=== PATIENT | female | born 1975 | race Caucasian/White ===

== ENCOUNTER 2018-09-25 18:27 | Observation (INO) | payer MEDICAID, OTHER ==
[2018-09-25 21:51] LABS: ADD MAN DIFF? NO
[2018-09-25 21:53] LABS: BASOPHILS % 0.3 % (0.0-2.0); EOSINOPHILS # 0.1 10^3/ul (0.0-0.5); EOSINOPHILS % 0.6 % (0.0-7.0); HEMATOCRIT 44.1 % (37.0-47.0); HEMOGLOBIN 15.3 g/dl (12.0-16.0); LYMPHOCYTES # 3.2 10^3/ul (0.8-2.9); LYMPHOCYTES % 29.3 % (15.0-51.0); MEAN CORPUSCULAR HEMOGLOBIN 30.9 pg (29.0-33.0); MEAN CORPUSCULAR HGB CONC 34.7 g/dl (32.0-37.0); MEAN CORPUSCULAR VOLUME 89.1 fl (82.0-101.0); MEAN PLATELET VOLUME 11.3 fl (7.4-10.4); MONOCYTE # 0.6 10^3/ul (0.3-0.9); MONOCYTES % 5.7 % (0.0-11.0); NEUTROPHIL # 6.9 10^3/ul (1.6-7.5); NEUTROPHILS % 63.7 % (39.0-77.0); PLATELET COUNT 336 10^3/UL (140-415); RED BLOOD COUNT 4.95 10^6/ul (4.20-5.40); RED CELL DISTRIBUTION WIDTH 10.9 % (11.5-14.5)
[2018-09-25 21:53] LABS: WHITE BLOOD COUNT 10.9 10^3/ul (4.8-10.8)
[2018-09-25 22:17] LABS: ALANINE AMINOTRANSFERASE 9 IU/L (13-69); ALBUMIN 4.5 g/dl (3.3-4.9); ALBUMIN/GLOBULIN RATIO 1.28; ALKALINE PHOSPHATASE 147 IU/L (42-121); ANION GAP 12 (5-13); ASPARTATE AMINO TRANSFERASE 18 IU/L (15-46); BILIRUBIN,INDIRECT 0.4 mg/dl (0-1.1); BILIRUBIN,TOTAL 0.4 mg/dl (0.2-1.3); BLOOD UREA NITROGEN 12 mg/dl (7-20); CALCIUM 9.6 mg/dl (8.4-10.2); CARBON DIOXIDE 27 mmol/L (21-31); CHLORIDE 102 mmol/L (97-110); CREATININE 0.34 mg/dl (0.44-1.00); Estimated GFR > 60 mL/min (>60); GLUCOSE 308 mg/dl (70-220); LIPASE 144 U/L (23-300); POTASSIUM 3.7 mmol/L (3.5-5.1); SODIUM 141 mmol/L (135-144)
[2018-09-25] MEDS: ENALAPRILAT 1.25 MG INJ IV ×2 (22:26→23:12)
[2018-09-25 22:27] LABS: TROPONIN-I < 0.012 ng/ml (0.000-0.120)
[2018-09-25] MEDS: ACYCLOVIR 800 MG TAB PO (22:41)
[2018-09-25] MEDS: ONDANSETRON 4 MG INJ IV (22:41)
[2018-09-25] MEDS: DEXAMETHASONE 10 MG/ML 1 ML INJ IV (22:41)
[2018-09-25] MEDS: SOD CHLORIDE 0.9% 500 ML IV (22:42)
[2018-09-25] MEDS: ASPIRIN 81 MG TAB PO (23:24)
[2018-09-25 23:42] LABS: ADD UMIC NO; UR ASCORBIC ACID NEGATIVE (NEGATIVE); UR BILIRUBIN (Dip) NEGATIVE (NEGATIVE); UR BLOOD (Dip) NEGATIVE (NEGATIVE); UR CLARITY CLEAR (CLEAR); UR COLOR COLORLESS (YELLOW); UR GLUCOSE (Dip) 3+ mg/dL (NEGATIVE); UR KETONES (Dip) TRACE mg/dL (NEGATIVE); UR LEUKOCYTE ESTERASE (Dip) NEGATIVE Leu/ul (NEGATIVE); UR NITRITE (Dip) NEGATIVE (NEGATIVE); UR SPECIFIC GRAVITY (Dip) 1.005 (1.003-1.030); UR TOTAL PROTEIN (Dip) NEGATIVE (NEGATIVE); UR UROBILINOGEN (Dip) NEGATIVE (NEGATIVE)
[2018-09-26] MEDS ORDERED: NACL 0.9% 3 ML SYG IV (02:30)
[2018-09-26] MEDS ORDERED: GLUCAGON 1 MG INJ IM (03:00)
[2018-09-26] MEDS ORDERED: GLUCOSE GEL 15 GRAM TUBE PO ×2 (03:00)
[2018-09-26] MEDS ORDERED: DEXTROSE 50% 50 ML SYRINGE IV ×2 (03:00)
[2018-09-26] MEDS ORDERED: GLUCOSE GEL 15 GRAM TUBE BUCCAL (03:00)
[2018-09-26 03:45] LABS: ADD MAN DIFF? NO
[2018-09-26 04:05] LABS: BASOPHILS % 0.3 % (0.0-2.0); HEMATOCRIT 42.2 % (37.0-47.0); HEMOGLOBIN 14.8 g/dl (12.0-16.0); LYMPHOCYTES # 1.1 10^3/ul (0.8-2.9); LYMPHOCYTES % 8.4 % (15.0-51.0); MEAN CORPUSCULAR HEMOGLOBIN 31.4 pg (29.0-33.0); MEAN CORPUSCULAR HGB CONC 35.1 g/dl (32.0-37.0); MEAN CORPUSCULAR VOLUME 89.4 fl (82.0-101.0); MEAN PLATELET VOLUME 11.7 fl (7.4-10.4); MONOCYTE # 0.1 10^3/ul (0.3-0.9); NEUTROPHIL # 11.6 10^3/ul (1.6-7.5); PLATELET COUNT 311 10^3/UL (140-415); RED BLOOD COUNT 4.72 10^6/ul (4.20-5.40)
[2018-09-26 04:09] LABS: HEMOGLOBIN A1C 10.1 % (0-5.9)
[2018-09-26 04:10] LABS: CREATINE KINASE 33 IU/L (23-200)
[2018-09-26 04:14] LABS: ALANINE AMINOTRANSFERASE 6 IU/L (13-69); ALBUMIN 4.2 g/dl (3.3-4.9); ALBUMIN/GLOBULIN RATIO 1.31; ALKALINE PHOSPHATASE 136 IU/L (42-121); ANION GAP 13 (5-13); ASPARTATE AMINO TRANSFERASE 16 IU/L (15-46); BILIRUBIN,INDIRECT 0.5 mg/dl (0-1.1); BILIRUBIN,TOTAL 0.5 mg/dl (0.2-1.3); BLOOD UREA NITROGEN 14 mg/dl (7-20); CALCIUM 9.6 mg/dl (8.4-10.2); CARBON DIOXIDE 24 mmol/L (21-31); CHLORIDE 103 mmol/L (97-110); CHOL/HDL RATIO 6.2 RATIO; CHOLESTEROL 243 mg/dl (100-200); CREATININE 0.38 mg/dl (0.44-1.00); Estimated GFR > 60 mL/min (>60); HDL CHOLESTEROL 39 mg/dl (34-88); LDL CHOLESTEROL,CALCULATED 189 mg/dl; POTASSIUM 4.2 mmol/L (3.5-5.1); SODIUM 140 mmol/L (135-144); TOTAL PROTEIN 7.4 g/dl (6.1-8.1); TRIGLYCERIDES 74 mg/dl (0-149)
[2018-09-26 04:22] LABS: CK INDEX 0.7; CK-MB < 0.22 ng/ml (0.0-2.4); TROPONIN-I < 0.012 ng/ml (0.000-0.120)
[2018-09-26 04:23] LABS: GLUCOSE 455 mg/dl (70-220)
[2018-09-26] MEDS: INSULIN ASPART [NOVOLOG] 3 ML PEN SC ×8 (04:49→21:00)
[2018-09-26 05:16] LABS: THYROID STIMULATING HORMONE 0.422 MIU/L (0.465-4.680)
[2018-09-26] MEDS: ASPIRIN 81 MG TAB PO (08:08)
[2018-09-26] MEDS: INSULIN GLARGINE [LANTus] (100 UNITS/ML) SYG SC (08:19)
[2018-09-26] MEDS: HEPARIN 5,000 UNIT/1 ML VIAL SC ×2 (08:19→21:01)
[2018-09-26 09:06] LABS: CREATINE KINASE 32 IU/L (23-200)
[2018-09-26 09:20] LABS: CK INDEX 0.8; CK-MB 0.26 ng/ml (0.0-2.4); TROPONIN-I < 0.012 ng/ml (0.000-0.120)
[2018-09-26] MEDS: SOD CHLORIDE 0.9% 100 ML (10:56)
[2018-09-26] MEDS: IOHEXOL 100 ML (10:56)
[2018-09-26] MEDS: ACETAMINOPHEN 325 MG TAB PO (15:50)
[2018-09-26] MEDS ORDERED: morphine 2 MG INJ IV (16:30)
[2018-09-26] MEDS ORDERED: HYDROmorphONE 0.5 MG/0.5 ML SYG IV (16:30)
[2018-09-26] MEDS: HYDROCODONE/APAP (10/325) TAB PO ×2 (16:32→23:38)
[2018-09-26] MEDS: ATORVASTATIN 20 MG TAB PO (20:10)
[2018-09-26] MEDS: ONDANSETRON 4 MG INJ IV (23:40)
[2018-09-27] MEDS: ACCU-CHEK XX (01:26)
[2018-09-27 06:39] LABS: ADD MAN DIFF? NO
[2018-09-27] MEDS: ACETAMINOPHEN 325 MG TAB PO (06:48)
[2018-09-27 06:51] LABS: BASOPHILS % 0.3 % (0.0-2.0); EOSINOPHILS % 0.3 % (0.0-7.0); HEMOGLOBIN 13.5 g/dl (12.0-16.0); LYMPHOCYTES # 4.1 10^3/ul (0.8-2.9); LYMPHOCYTES % 34.6 % (15.0-51.0); MEAN CORPUSCULAR HGB CONC 34.6 g/dl (32.0-37.0); MEAN CORPUSCULAR VOLUME 89.7 fl (82.0-101.0); MEAN PLATELET VOLUME 11.6 fl (7.4-10.4); MONOCYTE # 0.8 10^3/ul (0.3-0.9); MONOCYTES % 6.3 % (0.0-11.0); NEUTROPHIL # 6.9 10^3/ul (1.6-7.5); NEUTROPHILS % 58.1 % (39.0-77.0); PLATELET COUNT 289 10^3/UL (140-415); RED BLOOD COUNT 4.35 10^6/ul (4.20-5.40); RED CELL DISTRIBUTION WIDTH 11.1 % (11.5-14.5)
[2018-09-27 06:51] LABS: WHITE BLOOD COUNT 11.8 10^3/ul (4.8-10.8)
[2018-09-27 07:14] LABS: INR 1.01; PROTIME 13.4 Sec (11.9-14.9)
[2018-09-27 07:17] LABS: ANION GAP 11 (5-13); BLOOD UREA NITROGEN 19 mg/dl (7-20); CALCIUM 9.6 mg/dl (8.4-10.2); CARBON DIOXIDE 27 mmol/L (21-31); CHLORIDE 104 mmol/L (97-110); CREATININE 0.43 mg/dl (0.44-1.00); Estimated GFR > 60 mL/min (>60); GLUCOSE 185 mg/dl (70-220); MAGNESIUM 1.9 mg/dl (1.7-2.5); PHOSPHORUS 5.6 mg/dl (2.5-4.9); POTASSIUM 3.4 mmol/L (3.5-5.1); SODIUM 142 mmol/L (135-144)
[2018-09-27 07:26] LABS: CHOL/HDL RATIO 6.2 RATIO; HDL CHOLESTEROL 35 mg/dl (34-88); LDL CHOLESTEROL,CALCULATED 146 mg/dl; TRIGLYCERIDES 191 mg/dl (0-149)
[2018-09-27 07:26] LABS: CHOLESTEROL 219 mg/dl (100-200)
[2018-09-27 07:34] LABS: FREE T4 (FREE THYROXINE) 0.95 ng/dl (0.64-1.79)
[2018-09-27 07:57] LABS: TRIIODOTHYRONINE 0.66 ng/ml (0.97-1.69)
[2018-09-27] MEDS: INSULIN ASPART [NOVOLOG] 3 ML PEN SC ×7 (08:00→20:46)
[2018-09-27] MEDS: ASPIRIN 81 MG TAB PO (08:07)
[2018-09-27] MEDS: LISINOPRIL 5 MG TAB PO (08:08)
[2018-09-27] MEDS: HEPARIN 5,000 UNIT/1 ML VIAL SC ×2 (08:14→20:48)
[2018-09-27] MEDS: INSULIN GLARGINE [LANTus] (100 UNITS/ML) SYG SC (08:15)
[2018-09-27] MEDS: ATORVASTATIN 20 MG TAB PO (20:45)
[2018-09-27] MEDS: GABAPENTIN 100 MG CAP PO (20:46)
[2018-09-28] MEDS: ACCU-CHEK XX (02:00)
[2018-09-28] MEDS: ACETAMINOPHEN 325 MG TAB PO (06:30)
[2018-09-28] MEDS: GABAPENTIN 100 MG CAP PO ×2 (08:05→11:52)
[2018-09-28] MEDS: ASPIRIN 81 MG TAB PO (08:05)
[2018-09-28] MEDS: LISINOPRIL 5 MG TAB PO (08:06)
[2018-09-28] MEDS: INSULIN ASPART [NOVOLOG] 3 ML PEN SC ×5 (08:20→17:36)
[2018-09-28] MEDS: INSULIN GLARGINE [LANTus] (100 UNITS/ML) SYG SC (08:20)
[2018-09-28] MEDS: HEPARIN 5,000 UNIT/1 ML VIAL SC (08:21)
== END 2018-09-28 17:49 | disposition home or self-care (01) ==
LOC: E/R 18:27 → TEL 23:18
DX: R20.2 Paresthesia of skin (principal); E04.1 Nontoxic single thyroid nodule; G44.209 Tension-type headache, unspecified, not intractable; G51.0 Bell's palsy; I10 Essential (primary) hypertension; G56.00 Carpal tunnel syndrome, unspecified upper limb; I16.0 Hypertensive urgency; E11.65 Type 2 diabetes mellitus with hyperglycemia; Z79.4 Long term (current) use of insulin; Z79.82 Long term (current) use of aspirin
CPT/HCPCS: 36415; 70450; 70496; 70498; 70552; 72040; 80048; 80053; 80061; 81003; 82550; 82553; 82607; 82746; 82962; 83036; 83690; 83735; 84100; 84439; 84443; 84480; 84484; 84703; 85025; 85610; 92526; 92610; 93005; 93306; 96374; 96375; 97116; 97161; 97530; 99285-25; G0378

== ENCOUNTER 2019-03-28 18:04 | Emergency (ER) | payer OTHER, MEDICAID ==
[2019-03-28] MEDS: morphine 4 MG/ML VIAL IV (20:26)
[2019-03-28] MEDS: SOD CHLORIDE 0.9% 1,000 ML IV (20:26)
[2019-03-28] MEDS: ONDANSETRON 4 MG INJ IV (20:26)
[2019-03-28 20:28] LABS: ADD MAN DIFF? NO
[2019-03-28 20:30] LABS: BASOPHIL # 0.1 10^3/ul (0.0-0.1); BASOPHILS % 0.6 % (0.0-2.0); EOSINOPHILS # 0.1 10^3/ul (0.0-0.5); EOSINOPHILS % 0.7 % (0.0-7.0); HEMATOCRIT 42.2 % (37.0-47.0); LYMPHOCYTES # 3.1 10^3/ul (0.8-2.9); LYMPHOCYTES % 24.6 % (15.0-51.0); MEAN CORPUSCULAR HEMOGLOBIN 31.3 pg (29.0-33.0); MEAN CORPUSCULAR HGB CONC 33.2 g/dl (32.0-37.0); MEAN CORPUSCULAR VOLUME 94.2 fl (82.0-101.0); MEAN PLATELET VOLUME 11.2 fl (7.4-10.4); MONOCYTE # 0.9 10^3/ul (0.3-0.9); MONOCYTES % 6.8 % (0.0-11.0); NEUTROPHIL # 8.4 10^3/ul (1.6-7.5); NEUTROPHILS % 66.8 % (39.0-77.0); PLATELET COUNT 387 10^3/UL (140-415); RED BLOOD COUNT 4.48 10^6/ul (4.20-5.40); RED CELL DISTRIBUTION WIDTH 11.7 % (11.5-14.5)
[2019-03-28 20:30] LABS: WHITE BLOOD COUNT 12.6 10^3/ul (4.8-10.8)
[2019-03-28 20:40] LABS: ADD UMIC YES; UR ASCORBIC ACID NEGATIVE (NEGATIVE); UR BACTERIA FEW /HPF (NONE SEEN); UR BILIRUBIN (Dip) NEGATIVE (NEGATIVE); UR BLOOD (Dip) NEGATIVE (NEGATIVE); UR CLARITY CLEAR (CLEAR); UR COLOR YELLOW (YELLOW); UR GLUCOSE (Dip) NEGATIVE (NEGATIVE); UR KETONES (Dip) NEGATIVE (NEGATIVE); UR LEUKOCYTE ESTERASE (Dip) NEGATIVE Leu/ul (NEGATIVE); UR MUCUS MANY /HPF (NONE SEEN); UR NITRITE (Dip) NEGATIVE (NEGATIVE); UR RBC 0 /HPF (0-5); UR SPECIFIC GRAVITY (Dip) 1.024 (1.003-1.030); UR TOTAL PROTEIN (Dip) 2+ mg/dl (NEGATIVE); UR UROBILINOGEN (Dip) 1+ mg/dL (NEGATIVE); UR WBC 1 /HPF (0-5)
[2019-03-28 20:48] LABS: ALBUMIN 4.8 g/dl (3.3-4.9); ALBUMIN/GLOBULIN RATIO 1.23; ALKALINE PHOSPHATASE 91 IU/L (42-121); AMYLASE 75 U/L (11-123); ANION GAP 10 (5-13); ASPARTATE AMINO TRANSFERASE 21 IU/L (15-46); BILIRUBIN,INDIRECT 0.3 mg/dl (0-1.1); BILIRUBIN,TOTAL 0.3 mg/dl (0.2-1.3); BLOOD UREA NITROGEN 12 mg/dl (7-20); CALCIUM 9.9 mg/dl (8.4-10.2); CARBON DIOXIDE 25 mmol/L (21-31); CHLORIDE 107 mmol/L (97-110); CREATININE 0.62 mg/dl (0.44-1.00); Estimated GFR > 60 mL/min (>60); GLUCOSE 140 mg/dl (70-220); LIPASE 138 U/L (23-300); SODIUM 142 mmol/L (135-144); TOTAL PROTEIN 8.7 g/dl (6.1-8.1)
[2019-03-28 20:49] LABS: ALANINE AMINOTRANSFERASE < 6 IU/L (13-69)
[2019-03-28 20:51] LABS: INR 0.92; PROTIME 12.5 Sec (11.9-14.9)
[2019-03-28 20:52] LABS: PARTIAL THROMBOPLASTIN TIME 30.2 Sec (23.0-35.0)
[2019-03-28 21:00] LABS: TROPONIN-I < 0.012 ng/ml (0.000-0.120)
== END 2019-03-28 22:04 | disposition home or self-care (01) ==
LOC: E/R 18:04
DX: G50.0 Trigeminal neuralgia (principal); I16.0 Hypertensive urgency; I10 Essential (primary) hypertension; E11.9 Type 2 diabetes mellitus without complications; Z79.4 Long term (current) use of insulin
CPT/HCPCS: 80053; 81001; 82150; 83690; 84484; 85025; 85610; 85730; 93005; 96361; 96374; 96375; 99284-25